=== PATIENT | female | born 1990 | race Caucasian/White ===

== ENCOUNTER 2016-10-10 12:12 | Emergency (ER) | payer MEDICAID ==
[~2016-10-10] VITALS: Ht 177.8 cm; Wt 68.0 kg
[2016-10-10 13:09] VITALS: BP 128/88
[2016-10-10] MEDS ORDERED: IBUPROFEN 600MG TABLET PO ONE (14:30)
== END 2016-10-10 15:33 | disposition home or self-care (01) ==
LOC: ER 15:31
DX: S90.561A Insect bite (nonvenomous), right ankle, initial encounter (principal); L03.115 Cellulitis of right lower limb; W57.XXXA Bitten or stung by nonvenomous insect and other nonvenomous arthropods, initial encounter; Y93.89 Activity, other specified; Y92.89 Other specified places as the place of occurrence of the external cause; R03.0 Elevated blood-pressure reading, without diagnosis of hypertension
CPT/HCPCS: 99283

== ENCOUNTER 2017-01-06 22:58 | Emergency (ER) | payer MEDICAID ==
[~2017-01-06] VITALS: Ht 170.2 cm; Wt 56.0 kg
[2017-01-07] MEDS ORDERED: PERMETHRIN 5% CREAM 60GM TOP ONE (00:15)
[2017-01-07 01:08] LABS: BASOPHILS % 0.5 % (0.0-2.0); EOSINOPHILS % 1.2 % (0.0-5.0); HEMATOCRIT. 38.1 % (36.0-48.0); LYMPHOCYTES % 30.7 % (20.0-50.0); MEAN CORPUSCULAR HEMOGLOBIN 29.5 pg (28.0-32.0); MEAN CORPUSCULAR VOLUME 86.3 fL (81.0-99.0); MONOCYTES % 11.8 % (2.0-8.0); NEUTROPHILS % 55.8 % (40.0-76.0); PLATELET 277 x1000/uL (130-400); RED BLOOD CELL COUNT 4.41 mill/uL (4.2-5.4); RED CELL DISTRIBUTION WIDTH 14.1 % (11.6-14.6)
[2017-01-07 01:13] LABS: CHLORIDE 104 mEq/L (98-107)
[2017-01-07 01:20] LABS: CARBON DIOXIDE 30 mEq/L (21-32); ETHANOL BLOOD < 10 mg/dL
[2017-01-07] MEDS ORDERED: PIPERONYL/PYRETHRINS (RID)120 ML SHAMPOO TOP NR (01:48)
[2017-01-07 03:53] LABS: CLARITY URINE CLEAR (CLEAR); COLOR URINE YELLOW (YELLOW); GLUCOSE URINE NEGATIVE (NEGATIVE); KETONES URINE NEGATIVE (NEGATIVE); LEUKOCYTE ESTERASE URINE NEGATIVE (NEGATIVE); NITRITE URINE NEGATIVE (NEGATIVE); OCCULT BLOOD URINE NEGATIVE (NEGATIVE); PH URINE 6.5 (4.5-8.0); PROTEIN URINE NEGATIVE (NEGATIVE); SPECIFIC GRAVITY URINE 1.024 (1.005-1.030); UROBILINOGEN URINE 0.2 E.U./dL (0.2-1.0)
[2017-01-07 04:05] LABS: *BARBITURATES SCREEN URINE NEGATIVE (NEGATIVE); *BENZODIAZEPINES SCREEN URINE NEGATIVE (NEGATIVE); *COCAINE SCREEN URINE NEGATIVE (NEGATIVE); CANNABINOID URINE SCREEN NEGATIVE (NEGATIVE); METHADONE URINE SCREEN NEGATIVE (NEGATIVE); OPIATES URINE SCREEN NEGATIVE (NEGATIVE); PHENCYCLIDINE URINE SCREEN NEGATIVE (NEGATIVE)
[2017-01-07 04:15] LABS: *AMPHETAMINES SCREEN URINE PRESUMTIVE POSITIVE (NEGATIVE)
[2017-01-07 12:52] VITALS: BP 110/69
== END 2017-01-07 13:58 | disposition home or self-care (01) ==
LOC: ER 22:58
DX: B86 Scabies (principal); B85.2 Pediculosis, unspecified; L20.9 Atopic dermatitis, unspecified; F14.10 Cocaine abuse, uncomplicated; F12.10 Cannabis abuse, uncomplicated; Z59.0 Homelessness
CPT/HCPCS: 36415; 80048; 80305; 80307; 80329; 81003; 81025; 85025; 99284; G0482; Z7610

== ENCOUNTER 2017-01-27 19:15 | Emergency (ER) | payer MEDICAID ==
[~2017-01-27] VITALS: Ht 177.8 cm; Wt 63.0 kg
[2017-01-27 19:23] VITALS: BP 113/71
== END 2017-01-27 23:17 | disposition home or self-care (01) ==
LOC: ER 19:15
DX: B86 Scabies (principal); F31.9 Bipolar disorder, unspecified; F14.10 Cocaine abuse, uncomplicated; F12.10 Cannabis abuse, uncomplicated
CPT/HCPCS: 99282

== ENCOUNTER 2017-02-04 07:07 | Emergency (ER) | payer MEDICAID ==
[~2017-02-04] VITALS: Ht 175.3 cm; Wt 60.0 kg
[2017-02-04] MEDS ORDERED: TETANUS, DIPHTHERIA, PERTUSSIS VAC/PF 0.5ML (>7YR OLD) IM ONE (08:15)
[2017-02-04] MEDS ORDERED: ACETAMINOPHEN 325MG TABLET PO ONE (08:15)
[2017-02-04 14:20] VITALS: BP 112/52
== END 2017-02-04 16:37 | disposition home or self-care (01) ==
LOC: ER 07:15
DX: S00.211A Abrasion of right eyelid and periocular area, initial encounter (principal); S60.511A Abrasion of right hand, initial encounter; F31.9 Bipolar disorder, unspecified; B86 Scabies; F12.10 Cannabis abuse, uncomplicated; F14.10 Cocaine abuse, uncomplicated; Y04.0XXA Assault by unarmed brawl or fight, initial encounter; Y93.89 Activity, other specified; Y92.488 Other paved roadways as the place of occurrence of the external cause
CPT/HCPCS: 73130; 90471; 90715; 99284

== ENCOUNTER 2017-02-15 13:35 | Emergency (ER) | payer MEDICAID ==
[~2017-02-15] VITALS: Ht 177.8 cm; Wt 65.0 kg
[2017-02-15] MEDS ORDERED: PERMETHRIN 5% CREAM 60GM TOP ONE (16:15)
[2017-02-16 09:02] VITALS: BP 136/76
== END 2017-02-16 11:06 | disposition home or self-care (01) ==
LOC: ER 13:35
DX: B86 Scabies (principal); F31.9 Bipolar disorder, unspecified; F12.10 Cannabis abuse, uncomplicated; F14.10 Cocaine abuse, uncomplicated
CPT/HCPCS: 99283; Z7610

== ENCOUNTER 2017-02-21 19:54 | Emergency (ER) | payer MEDICAID ==
[~2017-02-21] VITALS: Ht 177.8 cm; Wt 65.0 kg
[2017-02-22] MEDS ORDERED: IBUPROFEN 600MG TABLET PO ONE (04:15)
[2017-02-22] MEDS ORDERED: LIDOCAINE HCL 1% 20ML VIAL (Pyxis) INJ INFIL ONE (05:15)
[2017-02-22] MEDS ORDERED: AZITHROMYCIN 500 MG TABLET PO ONE (05:15)
[2017-02-22] MEDS ORDERED: CEFTRIAXONE SODIUM 250 MG/VIAL IM ONE (05:15)
[2017-02-22 05:45] VITALS: BP 124/72
[2017-02-22 07:25] LABS: CLARITY URINE CLOUDY (CLEAR); COLOR URINE YELLOW (YELLOW); KETONES URINE TRACE (NEGATIVE); LEUKOCYTE ESTERASE URINE TRACE (NEGATIVE); NITRITE URINE NEGATIVE (NEGATIVE); OCCULT BLOOD URINE NEGATIVE (NEGATIVE); PH URINE 6.5 (4.5-8.0); PROTEIN URINE NEGATIVE (NEGATIVE); SPECIFIC GRAVITY URINE 1.026 (1.005-1.030); UROBILINOGEN URINE 0.2 E.U./dL (0.2-1.0)
== END 2017-02-22 08:45 | disposition home or self-care (01) ==
LOC: ER 19:54
DX: T54.91XA Toxic effect of unspecified corrosive substance, accidental (unintentional), initial encounter (principal); L23.5 Allergic contact dermatitis due to other chemical products; N89.8 Other specified noninflammatory disorders of vagina; L03.213 Periorbital cellulitis; F14.10 Cocaine abuse, uncomplicated; F12.10 Cannabis abuse, uncomplicated; Y92.89 Other specified places as the place of occurrence of the external cause
CPT/HCPCS: 81001; 81025; 96372; 99283; J0696; J3490; Z7610

== ENCOUNTER 2017-02-27 23:31 | Emergency (ER) | payer MEDICAID ==
[~2017-02-27] VITALS: Ht 157.5 cm; Wt 63.0 kg
[2017-02-27 23:40] VITALS: BP 115/74
== END 2017-02-28 06:15 | disposition left against medical advice (07) ==
LOC: ER 23:31
DX: N93.9 Abnormal uterine and vaginal bleeding, unspecified (principal); Z53.21 Procedure and treatment not carried out due to patient leaving prior to being seen by health care provider

== ENCOUNTER 2017-02-28 07:35 | Emergency (ER) | payer MEDICAID ==
[~2017-02-28] VITALS: Ht 177.8 cm; Wt 63.0 kg
[2017-02-28 07:54] VITALS: BP 103/71
== END 2017-02-28 12:17 | disposition left against medical advice (07) ==
LOC: ER 07:48
DX: K62.5 Hemorrhage of anus and rectum (principal); Z53.21 Procedure and treatment not carried out due to patient leaving prior to being seen by health care provider

== ENCOUNTER 2017-03-06 21:43 | Emergency (ER) | payer MEDICAID ==
[~2017-03-06] VITALS: Ht 180.3 cm; Wt 63.5 kg
[2017-03-07] MEDS ORDERED: PERMETHRIN 5% CREAM 60GM TOP ONE (00:30)
[2017-03-07 09:24] VITALS: BP 115/72
== END 2017-03-07 09:25 | disposition home or self-care (01) ==
LOC: ER 22:00
DX: B86 Scabies (principal); F31.9 Bipolar disorder, unspecified
CPT/HCPCS: 99283

== ENCOUNTER 2017-03-17 04:07 | Emergency (ER) | payer MEDICAID ==
[~2017-03-17] VITALS: Ht 172.7 cm; Wt 69.0 kg
[2017-03-17 04:09] VITALS: BP 133/87
== END 2017-03-17 11:27 | disposition home or self-care (01) ==
LOC: ER 04:07
DX: F31.9 Bipolar disorder, unspecified (principal); F41.9 Anxiety disorder, unspecified
CPT/HCPCS: 99283

== ENCOUNTER 2017-03-17 11:38 | Emergency (ER) | payer MEDICAID ==
[~2017-03-17] VITALS: Ht 177.8 cm; Wt 65.0 kg
[2017-03-17 11:54] VITALS: BP 126/66
== END 2017-03-17 17:26 | disposition left against medical advice (07) ==
LOC: ER 13:35
DX: R21 Rash and other nonspecific skin eruption (principal); Z53.21 Procedure and treatment not carried out due to patient leaving prior to being seen by health care provider

== ENCOUNTER 2017-03-17 18:31 | Emergency (ER) | payer MEDICAID ==
[~2017-03-17] VITALS: Ht 177.8 cm; Wt 65.0 kg
[2017-03-17 18:35] VITALS: BP 124/72
== END 2017-03-17 22:01 | disposition home or self-care (01) ==
LOC: ER 19:09
DX: B86 Scabies (principal); E11.9 Type 2 diabetes mellitus without complications
CPT/HCPCS: 99282